=== PATIENT | male | born 1970 | race Hispanic/Latino ===

== ENCOUNTER 2019-09-19 10:29 | Emergency (ER) | payer OTHER ==
--- NOTE | 2019-09-19 11:08 | RAD ---
EXAM: Chest 2 views: HISTORY: Cough since September 04 and low-grade fever COMPARISON: 2-17 FINDINGS: There is a normal-sized cardiomediastinal silhouette. There are subtle peripheral areas of airspace o pacity in the left lung. No right-sided infiltrates are seen. The bones are unremarkable. IMPRESSION: Possible peripheral infiltrates in the left lung.
--- NOTE | 2019-09-24 12:30 | EKG ---
Test Reason : CHEST PAIN Blood Pressure : / mmHG Vent. Rate : 081 BPM Atrial Rate : 081 BPM P-R Int : 162 ms QRS Dur : 086 ms QT Int : 372 ms P-R-T Axes : 025 -01 -01 degrees QTc Int : 432 ms Sinus rhythm with Premature atrial complexes Moderate voltage criteria for LVH, may be normal variant Borderline ECG Confirmed by JUAN DAIVD CHAVIRA DO ([id number]), video news editor GRZEGORZ STAFFORD ([id number]) on 09/24/2019 12:29:31 PM Referred By: Confirmed By:JUAN DAVID CHAVIRA DO
== END 2019-09-19 12:40 | disposition home or self-care (01) ==
LOC: ERS 10:29
DX: J12.9 Viral pneumonia, unspecified (principal); G47.30 Sleep apnea, unspecified; I10 Essential (primary) hypertension; M10.9 Gout, unspecified; Z20.828 Contact with and (suspected) exposure to other viral communicable diseases
CPT/HCPCS: 71046; 87635; 93005; U0003

== ENCOUNTER 2020-02-27 19:20 | Emergency (ER) | payer SELFPAY ==
[2020-02-27 20:09] LABS: #Eosinphils 0.1 thou/uL (0.0-0.7); #Lymphocytes 2.2 thou/uL (1.20-3.40); #Monocytes 0.6 thou/uL (0.11-0.59); #Neutrophils 5.1 thou/uL (1.40-6.50); %Basophils 0.3 % (0.0-1.0); %Eosinophils 1.7 % (0.0-10.0); %Lymphocytes 27.4 % (21.0-51.0); %Monocytes 7.7 % (0.0-10.0); %Neutrophils 62.9 % (42.0-75.0); Hemoglobin 13.2 g/dL (14.0-18.0); Mean Corpuscular HGB CONC 35.1 g/dL (32.0-36.0); Mean Corpuscular Hemoglobin 30.6 pg (27.0-31.0); Mean Platelet Volume 7.8 fL (7.4-10.4); Platelet Count 223 thou/uL (130-400); Red Blood Cell (RBC) Count 4.32 mill/uL (4.70-6.10); White Blood Cell (WBC) Count 8.1 thou/uL (4.8-10.8)
[2020-02-27 20:28] LABS: ALT (SGPT) 27 U/L (8-55); AST (SGOT) 19 U/L (5-34); Albumin 4.1 g/dL (3.5-5.0); Alkaline Phosphatase 87 U/L (40-110); Anion Gap 14 mmol/L (10-20); BUN (Urea Nitrogen) 15 mg/dL (8.9-20.6); Bilirubin, Total 0.8 mg/dL (0.2-1.2); Calc. Creatinine Clearance 0 mL/min (70-130); Calcium 9.1 mg/dL (7.8-10.44); Carbon Dioxide 27 mmol/L (22-29); Chloride 102 mmol/L (98-107); Estimated GFR-MDRD 90; Glucose 99 mg/dL (70-105); Lipase 11 U/L (8-78); Protein, Total 7.1 g/dL (6.0-8.3); Sodium 139 mmol/L (136-145)
[2020-02-27] MEDS ORDERED: Morphine 4 MG/ML VIAL ONE (21:05)
[2020-02-27] MEDS ORDERED: Ondansetron PF 4 MG/2 ML Vial ONE (21:05)
[2020-02-27 21:24] LABS: Bacteria/HPF None Seen HPF (None Seen); Bilirubin Negative (Negative); Blood, Urine Trace (Negative); Clarity Clear (Clear); Glucose, Urine (Dipstick) Normal (Negative); Ketone, Urine Negative (Negative); Leukocyte Negative Leu/uL (Negative); Nitrite Negative (Negative); Protein, Urine (Dipstick) 30 mg/dL (Neg-Trace); RBC/HPF None Seen HPF (0-3); Specific Gravity, Urine 1.019 (1.002-1.036); Squamous Epithelial None Seen HPF (0-3); Urobilinogen Normal mg/dL (Less than 2); WBC/HPF 0-3 HPF (0-3)
== END 2020-02-27 22:21 | disposition home or self-care (01) ==
LOC: ERS 19:20
DX: K29.70 Gastritis, unspecified, without bleeding (principal); G47.30 Sleep apnea, unspecified; I10 Essential (primary) hypertension; M10.9 Gout, unspecified
CPT/HCPCS: 36415; 80053; 81003; 81015; 83690; 85025; 93005; J2270; J2405

== ENCOUNTER 2020-03-27 23:39 | Emergency (ER) | payer SELFPAY ==
[2020-03-28] MEDS ORDERED: Ketorolac Tromethamine 30 MG/ML VIAL ONE (02:02)
--- NOTE | 2020-03-28 10:03 | RAD ---
PA VIEW OF CHEST WITH 3 VIEWS OF RIGHT CHEST WALL: Date: 03/28/2020 INDICATION: Right posterior rib pain. FINDINGS: Heart size is accentuated by exam technique. No air space opacity, pleural effusion, or pneumothorax evident. No displaced right-sided rib fracture is evident. IMPRESSION: No displaced right-sided rib fracture. POS: BH
== END 2020-03-28 03:00 | disposition home or self-care (01) ==
LOC: ERS 23:39
DX: S29.012A Strain of muscle and tendon of back wall of thorax, initial encounter (principal); I10 Essential (primary) hypertension; G47.30 Sleep apnea, unspecified; M10.9 Gout, unspecified
CPT/HCPCS: 96372; J1885

== ENCOUNTER 2020-06-08 18:49 | Inpatient (IN) | payer OTHER, SELFPAY ==
[2020-06-08] MEDS ORDERED: Diltiazem 125 MG/25 ML ONE (19:09)
[2020-06-08 19:30] LABS: #Basophils 0.1 thou/uL (0.0-0.2); #Eosinphils 0.1 thou/uL (0.0-0.7); #Lymphocytes 2.4 thou/uL (1.20-3.40); #Monocytes 0.8 thou/uL (0.11-0.59); #Neutrophils 7.2 thou/uL (1.40-6.50); %Basophils 0.7 % (0.0-1.0); %Eosinophils 0.6 % (0.0-10.0); %Lymphocytes 22.5 % (21.0-51.0); %Monocytes 7.5 % (0.0-10.0); %Neutrophils 68.8 % (42.0-75.0); Hemoglobin 12.5 g/dL (14.0-18.0); Mean Corpuscular HGB CONC 34.1 g/dL (32.0-36.0); Mean Corpuscular Hemoglobin 30.7 pg (27.0-31.0); Mean Corpuscular Volume 89.8 fL (78.0-98.0); Mean Platelet Volume 7.1 fL (7.4-10.4); Platelet Count 351 thou/uL (130-400); Red Blood Cell (RBC) Count 4.08 mill/uL (4.70-6.10); White Blood Cell (WBC) Count 10.4 thou/uL (4.8-10.8)
[2020-06-08] MEDS ORDERED: Enoxaparin Sodium 100 MG/ML SYRINGE ONE (20:12)
[2020-06-08] MEDS ORDERED: Enoxaparin Sodium 30 MG/0.3 ML SYRINGE ONE (20:12)
[2020-06-08 20:16] LABS: ALT (SGPT) 34 U/L (8-55); AST (SGOT) 21 U/L (5-34); Albumin 3.8 g/dL (3.5-5.0); Alkaline Phosphatase 91 U/L (40-110); Anion Gap 13 mmol/L (10-20); BUN (Urea Nitrogen) 15 mg/dL (8.9-20.6); Bilirubin, Total 0.8 mg/dL (0.2-1.2); Calc. Creatinine Clearance 0 mL/min (70-130); Calcium 8.6 mg/dL (7.8-10.44); Carbon Dioxide 25 mmol/L (22-29); Chloride 104 mmol/L (98-107); Globulin 2.9 g/dL (2.4-3.5); Glucose 130 mg/dL (70-105); Potassium 3.8 mmol/L (3.5-5.1); Protein, Total 6.7 g/dL (6.0-8.3); Sodium 138 mmol/L (136-145)
[2020-06-08 20:35] LABS: Amphetamine Not Detected (NotDetected); Barbiturates Screen Not Detected (NotDetected); Benzodiazepine Screen Not Detected (NotDetected); Cocaine Metabolite Screen Not Detected (NotDetected); Medtox Control Line Valid? VALID (VALID); Medtox Reader # READER 4; Methadone Not Detected (NotDetected); Methamphetamine Not Detected (NotDetected); Opiate Screen Not Detected (NotDetected); Oxycodone Screen Not Detected (NotDetected); Phencyclidine (PCP) Not Detected (NotDetected); THC/Cannabinoid Screen Not Detected (NotDetected); Tricyclic Screen Not Detected (NotDetected)
[2020-06-08 22:21] LABS: Troponin I 0.014 ng/mL (< 0.028)
[2020-06-08 22:38] VITALS: BMI 35.3
[2020-06-09 01:26] LABS: Troponin I 0.014 ng/mL (< 0.028)
[2020-06-09] MEDS ORDERED: Ibuprofen 800 MG TAB PO SCH (02:00)
[2020-06-09] MEDS ORDERED: Sodium Chloride 0.65% Nasal 44 ML BOT EA NARE PRN (02:11)
[2020-06-09] MEDS ORDERED: Diltiazem HCl 125 MG, Admixture Fee 1 EACH in Sodium Chloride 0.9% 100 ML IVPB SCH (03:00)
[2020-06-09 04:48] LABS: #Eosinphils 0.1 thou/uL (0.0-0.7); #Lymphocytes 1.8 thou/uL (1.20-3.40); #Monocytes 0.8 thou/uL (0.11-0.59); #Neutrophils 7.5 thou/uL (1.40-6.50); %Basophils 0.3 % (0.0-1.0); %Eosinophils 0.5 % (0.0-10.0); %Lymphocytes 17.9 % (21.0-51.0); %Monocytes 7.6 % (0.0-10.0); %Neutrophils 73.7 % (42.0-75.0); Hemoglobin 11.5 g/dL (14.0-18.0); Mean Corpuscular HGB CONC 33.2 g/dL (32.0-36.0); Mean Corpuscular Hemoglobin 30.2 pg (27.0-31.0); Mean Corpuscular Volume 90.8 fL (78.0-98.0); Mean Platelet Volume 7.3 fL (7.4-10.4); Platelet Count 337 thou/uL (130-400); RBC Distribution Width 12.2 % (11.5-14.5); Red Blood Cell (RBC) Count 3.81 mill/uL (4.70-6.10); White Blood Cell (WBC) Count 10.2 thou/uL (4.8-10.8)
[2020-06-09 05:15] LABS: Anion Gap 15 mmol/L (10-20); BUN (Urea Nitrogen) 15 mg/dL (8.9-20.6); Calc. Creatinine Clearance 158 mL/min (70-130); Calcium 8.5 mg/dL (7.8-10.44); Carbon Dioxide 23 mmol/L (22-29); Chloride 104 mmol/L (98-107); Glucose 117 mg/dL (70-105); Potassium 3.6 mmol/L (3.5-5.1); Sodium 138 mmol/L (136-145)
[2020-06-09 05:58] LABS: SARS-CoV-2 PCR by NAA Not Detected (NotDetected)
[2020-06-09] MEDS ORDERED: Enoxaparin Sodium 40 MG/0.4 ML SYRINGE SC SCH (09:00)
[2020-06-09] MEDS ORDERED: Acetaminophen 325 MG TAB PO PRN (13:58)
[2020-06-09] MEDS: Enoxaparin Sodium 100 MG/ML SYRINGE SC SCH (20:53)
[2020-06-09] MEDS: Carvedilol 6.25 MG TAB PO SCH (20:53)
[2020-06-10] MEDS: Ibuprofen 800 MG TAB PO PRN ×2 (01:27→20:18)
[2020-06-10] MEDS: Guaifenesin DM 100-10/5 ML UDCUP PO PRN ×2 (01:29→18:05)
[2020-06-10 04:35] LABS: #Lymphocytes 2.6 thou/uL (1.20-3.40); #Neutrophils 8.5 thou/uL (1.40-6.50); %Basophils 0.2 % (0.0-1.0); %Eosinophils 0.4 % (0.0-10.0); %Lymphocytes 21.1 % (21.0-51.0); %Monocytes 7.8 % (0.0-10.0); %Neutrophils 70.5 % (42.0-75.0); Mean Corpuscular Hemoglobin 30.6 pg (27.0-31.0); Mean Corpuscular Volume 89.9 fL (78.0-98.0); Mean Platelet Volume 7.2 fL (7.4-10.4); Platelet Count 350 thou/uL (130-400); RBC Distribution Width 12.1 % (11.5-14.5); Red Blood Cell (RBC) Count 3.93 mill/uL (4.70-6.10); White Blood Cell (WBC) Count 12.1 thou/uL (4.8-10.8)
[2020-06-10 04:55] LABS: Anion Gap 13 mmol/L (10-20); BUN (Urea Nitrogen) 13 mg/dL (8.9-20.6); Calc. Creatinine Clearance 162 mL/min (70-130); Calcium 8.3 mg/dL (7.8-10.44); Carbon Dioxide 24 mmol/L (22-29); Chloride 105 mmol/L (98-107); Glucose 129 mg/dL (70-105); Potassium 3.4 mmol/L (3.5-5.1); Sodium 139 mmol/L (136-145)
[2020-06-10] MEDS ORDERED: Communication Order-Pharmacy FS SCH (09:30)
[2020-06-10] MEDS: Carvedilol 6.25 MG TAB PO SCH ×2 (09:57→20:15)
[2020-06-10] MEDS: Enoxaparin Sodium 100 MG/ML SYRINGE SC SCH ×2 (10:00→20:15)
[2020-06-10] MEDS ORDERED: Benzonatate 100 MG CAP PO SCH (10:00)
[2020-06-10] MEDS: Benzonatate 100 MG CAP PO SCH ×2 (16:24→20:15)
[2020-06-11 04:45] LABS: #Basophils 0.1 thou/uL (0.0-0.2); #Eosinphils 0.1 thou/uL (0.0-0.7); #Lymphocytes 4.1 thou/uL (1.20-3.40); #Monocytes 0.9 thou/uL (0.11-0.59); #Neutrophils 5.7 thou/uL (1.40-6.50); %Basophils 0.7 % (0.0-1.0); %Eosinophils 1.1 % (0.0-10.0); %Monocytes 7.9 % (0.0-10.0); %Neutrophils 52.2 % (42.0-75.0); Hemoglobin 13.6 g/dL (14.0-18.0); Mean Corpuscular HGB CONC 34.1 g/dL (32.0-36.0); Mean Corpuscular Hemoglobin 30.6 pg (27.0-31.0); Mean Corpuscular Volume 89.8 fL (78.0-98.0); Mean Platelet Volume 7.4 fL (7.4-10.4); Platelet Count 394 thou/uL (130-400); RBC Distribution Width 12.1 % (11.5-14.5); Red Blood Cell (RBC) Count 4.44 mill/uL (4.70-6.10); White Blood Cell (WBC) Count 10.9 thou/uL (4.8-10.8)
[2020-06-11 05:10] LABS: Anion Gap 14 mmol/L (10-20); BUN (Urea Nitrogen) 13 mg/dL (8.9-20.6); Calc. Creatinine Clearance 154 mL/min (70-130); Calcium 8.6 mg/dL (7.8-10.44); Carbon Dioxide 25 mmol/L (22-29); Chloride 104 mmol/L (98-107); Glucose 105 mg/dL (70-105); Potassium 3.7 mmol/L (3.5-5.1); Sodium 139 mmol/L (136-145)
[2020-06-11] MEDS: Benzonatate 100 MG CAP PO SCH ×3 (05:17→20:27)
[2020-06-11] MEDS: Carvedilol 6.25 MG TAB PO SCH (05:17)
[2020-06-11] MEDS ORDERED: Lidocaine 1% (PF) 30 ML VIAL ONE (09:36)
[2020-06-11] MEDS ORDERED: Midazolam HCl 2 mg/2 ml Vial ONE (10:06)
[2020-06-11] MEDS ORDERED: Iopamidol 370 76% 100 ML VIAL ONE (11:45)
[2020-06-11] MEDS: Amiodarone 200 MG TAB PO SCH ×2 (15:32→20:27)
[2020-06-11] MEDS ORDERED: Carvedilol 6.25 MG TAB PO SCH (20:00)
[2020-06-11] MEDS: Apixaban 5 MG TAB PO SCH (20:28)
[2020-06-11] MEDS: Sacubitril 49 MG/Valsartan 51 MG TABLET PO SCH (20:28)
[2020-06-12 04:46] LABS: #Basophils 0.1 thou/uL (0.0-0.2); #Eosinphils 0.1 thou/uL (0.0-0.7); #Lymphocytes 2.9 thou/uL (1.20-3.40); #Monocytes 0.8 thou/uL (0.11-0.59); %Basophils 0.6 % (0.0-1.0); %Eosinophils 0.9 % (0.0-10.0); %Lymphocytes 29.4 % (21.0-51.0); %Monocytes 8.3 % (0.0-10.0); %Neutrophils 60.7 % (42.0-75.0); Hemoglobin 13.2 g/dL (14.0-18.0); Mean Corpuscular HGB CONC 33.9 g/dL (32.0-36.0); Mean Corpuscular Hemoglobin 30.5 pg (27.0-31.0); Mean Corpuscular Volume 90.1 fL (78.0-98.0); Platelet Count 397 thou/uL (130-400); Red Blood Cell (RBC) Count 4.31 mill/uL (4.70-6.10)
[2020-06-12 05:13] LABS: Anion Gap 12 mmol/L (10-20); BUN (Urea Nitrogen) 14 mg/dL (8.9-20.6); Calc. Creatinine Clearance 160 mL/min (70-130); Calcium 8.3 mg/dL (7.8-10.44); Carbon Dioxide 24 mmol/L (22-29); Chloride 107 mmol/L (98-107); Glucose 117 mg/dL (70-105); Potassium 3.7 mmol/L (3.5-5.1); Sodium 139 mmol/L (136-145)
[2020-06-12] MEDS: Amiodarone 200 MG TAB PO SCH ×3 (08:41→20:44)
[2020-06-12] MEDS: Carvedilol 6.25 MG TAB PO SCH ×2 (08:41→20:44)
[2020-06-12] MEDS: Apixaban 5 MG TAB PO SCH ×2 (08:41→20:44)
[2020-06-12] MEDS: Benzonatate 100 MG CAP PO SCH ×3 (08:41→20:44)
[2020-06-12] MEDS: Sacubitril 49 MG/Valsartan 51 MG TABLET PO SCH ×2 (08:41→20:44)
[2020-06-12] MEDS ORDERED: PROPOFOL 200 MG/20 ML VIAL ONE (09:26)
[2020-06-12] MEDS ORDERED: PROPOFOL 40 ML ONE (12:16)
[2020-06-13] MEDS: Amiodarone 200 MG TAB PO SCH ×4 (09:04→21:26)
[2020-06-13] MEDS: Sacubitril 49 MG/Valsartan 51 MG TABLET PO SCH ×2 (09:04→21:26)
[2020-06-13] MEDS: Benzonatate 100 MG CAP PO SCH ×3 (09:05→21:26)
[2020-06-13] MEDS: Apixaban 5 MG TAB PO SCH ×2 (09:05→21:26)
[2020-06-13] MEDS: Carvedilol 6.25 MG TAB PO SCH ×2 (09:05→21:26)
[2020-06-13] MEDS: Ibuprofen 800 MG TAB PO PRN (09:07)
[2020-06-14] MEDS: Ibuprofen 800 MG TAB PO PRN (04:26)
[2020-06-14 08:31] LABS: Hemoglobin 13.1 g/dL (14.0-18.0); Platelet Count 424 thou/uL (130-400)
[2020-06-14] MEDS: Apixaban 5 MG TAB PO SCH (09:01)
[2020-06-14] MEDS: Benzonatate 100 MG CAP PO SCH (09:01)
[2020-06-14] MEDS: Sacubitril 49 MG/Valsartan 51 MG TABLET PO SCH (09:01)
[2020-06-14] MEDS: Amiodarone 200 MG TAB PO SCH (09:02)
[2020-06-14] MEDS: Carvedilol 6.25 MG TAB PO SCH (09:02)
[2020-06-14 09:13] LABS: Calc. Creatinine Clearance 154 mL/min (70-130)
[2020-06-14 10:15] VITALS: BP 133/82; TEMP 97.7
== END 2020-06-14 11:50 | disposition home or self-care (01) | DRG 287 ==
LOC: ERS 18:49 → 2NO 20:32 → OBSVTOIN 06-09 13:44
PROVIDERS: ADMIT Student in an Organized Health Care Education/Training Program; ATTEND Internal Medicine
PROC: 4A023N7 Measurement of Cardiac Sampling and Pressure, Left Heart, Percutaneous Approach (ICD-10-PCS; principal; 2020-06-11)
PROC: B2111ZZ Fluoroscopy of Multiple Coronary Arteries using Low Osmolar Contrast (ICD-10-PCS; 2020-06-11)
PROC: B2151ZZ Fluoroscopy of Left Heart using Low Osmolar Contrast (ICD-10-PCS; 2020-06-11)
DX: I48.0 Paroxysmal atrial fibrillation (principal); Z20.822 Contact with and (suspected) exposure to COVID-19; M10.9 Gout, unspecified; I42.8 Other cardiomyopathies; E87.6 Hypokalemia; I11.0 Hypertensive heart disease with heart failure; F10.10 Alcohol abuse, uncomplicated; E66.9 Obesity, unspecified; I50.9 Heart failure, unspecified; Z86.16 Personal history of COVID-19; Z68.33 Body mass index [BMI] 33.0-33.9, adult; Z79.01 Long term (current) use of anticoagulants
CPT/HCPCS: 36415; 71045; 76942; 80048; 80053; 80306; 82565; 83880; 84443; 84484; 85014; 85018; 85025; 85049; 87635; 92960; 93005; 93306; 93312; 93458; 96365; 96366; 96372; 99152; G0378; J1650; J2001; J2250; J2704; Q9967; U0003; U0005

== ENCOUNTER 2020-06-27 03:03 | Emergency (ER) | payer OTHER, SELFPAY ==
[2020-06-27 03:46] LABS: #Basophils 0.1 thou/uL (0.0-0.2); #Eosinphils 0.1 thou/uL (0.0-0.7); #Monocytes 0.5 thou/uL (0.11-0.59); #Neutrophils 4.4 thou/uL (1.40-6.50); %Basophils 1.2 % (0.0-1.0); %Eosinophils 1.2 % (0.0-10.0); %Lymphocytes 37.3 % (21.0-51.0); %Neutrophils 54.3 % (42.0-75.0); Hemoglobin 13.4 g/dL (14.0-18.0); Mean Corpuscular HGB CONC 33.2 g/dL (32.0-36.0); Mean Corpuscular Hemoglobin 29.5 pg (27.0-31.0); Mean Corpuscular Volume 88.9 fL (78.0-98.0); Platelet Count 299 thou/uL (130-400); Red Blood Cell (RBC) Count 4.53 mill/uL (4.70-6.10); White Blood Cell (WBC) Count 8.1 thou/uL (4.8-10.8)
[2020-06-27 04:08] LABS: ALT (SGPT) 11 U/L (8-55); AST (SGOT) 8 U/L (5-34); Albumin 3.5 g/dL (3.5-5.0); Alkaline Phosphatase 75 U/L (40-110); Anion Gap 14 mmol/L (10-20); BUN (Urea Nitrogen) 12 mg/dL (8.9-20.6); Bilirubin, Total 0.5 mg/dL (0.2-1.2); Calc. Creatinine Clearance 0 mL/min (70-130); Calcium 8.2 mg/dL (7.8-10.44); Carbon Dioxide 22 mmol/L (22-29); Chloride 105 mmol/L (98-107); Globulin 2.8 g/dL (2.4-3.5); Glucose 114 mg/dL (70-105); Lipase 17 U/L (8-78); Potassium 3.6 mmol/L (3.5-5.1); Protein, Total 6.3 g/dL (6.0-8.3); Sodium 137 mmol/L (136-145)
[2020-06-27 05:09] LABS: Digoxin Less than 0.15 ng/mL (0.8-2.0)
[2020-06-27] MEDS ORDERED: Acetaminophen 500 MG TAB ONE (05:11)
[2020-06-27] MEDS ORDERED: Ketorolac Tromethamine 30 MG/ML VIAL ONE (05:11)
== END 2020-06-27 05:20 | disposition home or self-care (01) ==
LOC: ERS 03:03
DX: I48.92 Unspecified atrial flutter (principal); R07.89 Other chest pain; G47.30 Sleep apnea, unspecified; I10 Essential (primary) hypertension; M10.9 Gout, unspecified; Z79.899 Other long term (current) drug therapy
CPT/HCPCS: 36415; 71045; 80053; 80162; 83690; 84484; 85025; 93005; 96374; J1885

== ENCOUNTER 2020-07-05 09:06 | Outpatient (CLI) | payer OTHER, SELFPAY ==
[2020-07-05 09:48] LABS: #Eosinphils 0.1 10x3/uL (0.0-0.5); #Monocytes 0.6 10x3/uL (0.0-1.1); #Neutrophils 4.5 10x3/uL (1.5-8.4); %Basophils 0.4 % (0.0-2.0); %Lymphocytes 27.5 % (18.0-47.0); %Monocytes 8.8 % (0.0-10.0); %Neutrophils 62.2 % (40.0-75.0); Hemoglobin 13.2 g/dL (13.5-17.5); Mean Corpuscular HGB CONC 31.8 g/dL (32.0-36.0); Mean Corpuscular Hemoglobin 28.6 pg (27.0-33.0); Mean Platelet Volume 10.9 fl (7.4-10.4); Platelet Count 261 10x3/uL (150-450); Red Blood Cell (RBC) Count 4.61 10x6/uL (4.32-5.72); White Blood Cell (WBC) Count 7.2 10x3/uL (3.5-10.5)
[2020-07-05 10:03] LABS: Anion Gap 12 mmol/L (10-20); BUN (Urea Nitrogen) 16 mg/dL (8.9-20.6); Calc. Creatinine Clearance 0 mL/min (70-130); Calcium 8.8 mg/dL (7.8-10.44); Carbon Dioxide 28 mmol/L (22-29); Chloride 104 mmol/L (98-107); Glucose 116 mg/dL (70-105); Potassium 4.5 mmol/L (3.5-5.1); Sodium 139 mmol/L (136-145)
[2020-07-05 10:34] LABS: INR-International Normal Ratio 1.1; PTT 32.5 sec (22.0-33.0); Prothrombin Time 11.9 sec (9.5-12.1)
[2020-07-05 17:59] LABS: SARS-CoV-2 PCR by NAA Not Detected (NotDetected)
== END 2020-07-05 09:07 | disposition home or self-care (01) ==
LOC: LABBT 09:06
PROVIDERS: ATTEND Internal Medicine Cardiovascular Disease
DX: Z01.812 Encounter for preprocedural laboratory examination (principal); I48.3 Typical atrial flutter; Z20.822 Contact with and (suspected) exposure to COVID-19
CPT/HCPCS: 80048; 85025; 85610; 85730; 87635; U0003; U0005

== ENCOUNTER 2020-07-10 12:40 | Day surgery (SDC) | payer OTHER, SELFPAY ==
[2020-07-06 12:19] VITALS: BMI 32.6
[2020-07-10] MEDS ORDERED: PROPOFOL 200 MG/20 ML VIAL ONE (13:32)
== END 2020-07-10 15:01 | disposition home or self-care (01) ==
LOC: CCL 12:40
PROVIDERS: ATTEND Internal Medicine Cardiovascular Disease
PROC: B24BZZ4 Ultrasonography of Heart with Aorta, Transesophageal (ICD-10-PCS; principal; 2020-07-10)
PROC: 5A2204Z Restoration of Cardiac Rhythm, Single (ICD-10-PCS; principal; 2020-07-10)
DX: I48.3 Typical atrial flutter (principal); I42.9 Cardiomyopathy, unspecified; I08.0 Rheumatic disorders of both mitral and aortic valves; I70.0 Atherosclerosis of aorta; I10 Essential (primary) hypertension; G47.30 Sleep apnea, unspecified; M10.9 Gout, unspecified; F10.10 Alcohol abuse, uncomplicated; E66.9 Obesity, unspecified; Z68.32 Body mass index [BMI] 32.0-32.9, adult; Z79.01 Long term (current) use of anticoagulants; Z79.899 Other long term (current) drug therapy
CPT/HCPCS: 92960; 93005; 93010; 93312; J2704

== ENCOUNTER 2020-10-09 14:45 | Outpatient (CLI) | payer OTHER | END 2020-10-09 14:46 | disposition home or self-care (01) | LOC: BICRAD 14:45 | PROVIDERS: ATTEND Internal Medicine | DX: Z02.71 Encounter for disability determination (principal) | CPT/HCPCS: 71046 ==

== ENCOUNTER 2021-08-27 12:19 | Emergency (ER) | payer OTHER | END 2021-08-27 16:15 | disposition left against medical advice (07) | LOC: ERS 12:19 | DX: Z53.21 Procedure and treatment not carried out due to patient leaving prior to being seen by health care provider (principal) ==

== ENCOUNTER 2023-02-11 07:20 | Day surgery (SDC) | payer OTHER ==
[2023-02-09 09:45] VITALS: BMI 33.4
[2023-02-09 10:51] LABS: Hematocrit 41.9 % (38.8-50.0); Hemoglobin 14.1 g/dL (13.5-17.5); Mean Corpuscular HGB CONC 33.7 g/dL (32.0-36.0); Mean Corpuscular Hemoglobin 30.1 pg (27.0-33.0); Mean Corpuscular Volume 89.3 fl (81.2-95.1); Platelet Count 255 10x3/uL (150-450); RBC Distribution Width 13.1 % (11.5-14.5); Red Blood Cell (RBC) Count 4.69 10x6/uL (4.32-5.72); White Blood Cell (WBC) Count 6.1 10x3/uL (3.5-10.5)
[2023-02-09 11:33] LABS: PTT 29.6 sec (22.0-33.0)
[2023-02-09 11:39] LABS: Anion Gap 15 mmol/L (10-20); BUN (Urea Nitrogen) 17 mg/dL (8.4-25.7); Calc. Creatinine Clearance 126 mL/min (70-130); Calcium 9.1 mg/dL (7.8-10.44); Carbon Dioxide 23 mmol/L (22-29); Chloride 107 mmol/L (98-107); Estimated GFR 94; Glucose 107 mg/dL (70-105); Potassium 4.3 mmol/L (3.5-5.1); Sodium 141 mmol/L (136-145)
[2023-02-11] MEDS ORDERED: Heparin 10,000 UNITS/ 10 ML VIAL ONE (09:09)
[2023-02-11] MEDS ORDERED: Heparin 25,000 units/D5W 500 ML ONE (09:09)
[2023-02-11] MEDS ORDERED: Protamine Sulfate 50 MG/5 ML VIAL ONE (09:09)
[2023-02-11] MEDS ORDERED: Oxymetazoline HCl 0.05% (30 ML BOT) ONE (10:17)
[2023-02-11] MEDS ORDERED: fentaNYL 50 mcg/mL 1 mL Vial ONE ×3 (10:24→14:11)
[2023-02-11] MEDS ORDERED: NEOSTIGMINE 3 MG/3 ML SYR 3 MG/3 ML SYRINGE ONE (10:37)
[2023-02-11] MEDS ORDERED: Succinylcholine 200 MG/10 ml SYRINGE FS ONE (10:37)
[2023-02-11] MEDS ORDERED: Dexamethasone 20 MG/5 ML VIAL ONE (10:37)
[2023-02-11] MEDS ORDERED: Glycopyrrolate 0.2 MG/ML 5 ML SYRINGE ONE (10:37)
[2023-02-11] MEDS ORDERED: PHENYLEPHRINE-NS 100 MCG/ML 10 ML SYRINGE ONE (10:37)
[2023-02-11] MEDS ORDERED: PROPOFOL 200 MG/20 ML VIAL ONE (10:37)
[2023-02-11] MEDS ORDERED: Lidocaine 1% PF 5 ML VIAL ONE (10:37)
[2023-02-11] MEDS ORDERED: Rocuronium Bromide 10 MG/ML (10ML VIAL) ONE (10:37)
[2023-02-11] MEDS ORDERED: ePHEDrine Sulfate 50 MG/10 ML VIAL ONE (10:37)
[2023-02-11] MEDS ORDERED: Ondansetron PF 4 MG/2 ML Vial ONE ×2 (10:37→11:49)
[2023-02-11] MEDS ORDERED: Isoproterenol 0.2 MG/1 ML AMP ONE (12:43)
== END 2023-02-11 17:30 | disposition home or self-care (01) ==
LOC: SDC 07:20
PROVIDERS: ATTEND Internal Medicine Cardiovascular Disease
PROC: 4A0274Z Measurement of Cardiac Electrical Activity, Via Natural or Artificial Opening (ICD-10-PCS; principal; 2023-02-11)
PROC: 02573ZK Destruction of Left Atrial Appendage, Percutaneous Approach (ICD-10-PCS; principal; 2023-02-11)
DX: I48.19 Other persistent atrial fibrillation (principal); I11.0 Hypertensive heart disease with heart failure; I50.9 Heart failure, unspecified; I25.5 Ischemic cardiomyopathy; E66.9 Obesity, unspecified; Z68.33 Body mass index [BMI] 33.0-33.9, adult; Z90.49 Acquired absence of other specified parts of digestive tract; Z95.818 Presence of other cardiac implants and grafts; Z86.16 Personal history of COVID-19; Z79.01 Long term (current) use of anticoagulants
CPT/HCPCS: 80048; 85027; 85347; 85610; 85730; 93005; 93623; 93656; 93657; C1732; C1759; C1760; C1894; J1100; J1644; J2405; J2704; J2720; J3010

== ENCOUNTER 2023-07-02 15:53 | Outpatient (CLI) | payer OTHER ==
[2023-07-02 16:58] LABS: #Basophils 0.06 10x3/uL (0.0-0.2); #Eosinphils 0.09 10x3/uL (0.0-0.5); #Monocytes 0.49 10x3/uL (0.0-1.1); %Eosinophils 1.6 % (0.0-6.0); %Lymphocytes 39.8 % (18.0-47.0); %Monocytes 8.6 % (0.0-10.0); %Neutrophils 48.8 % (40.0-75.0); Hemoglobin 13.9 g/dL (13.5-17.5); Mean Corpuscular HGB CONC 35.6 g/dL (32.0-36.0); Mean Corpuscular Hemoglobin 31.1 pg (27.0-33.0); Mean Corpuscular Volume 87.2 fl (81.2-95.1); Mean Platelet Volume 10.8 fl (7.4-10.4); Platelet Count 259 10x3/uL (150-450); RBC Distribution Width 12.4 % (11.5-14.5); Red Blood Cell (RBC) Count 4.47 10x6/uL (4.32-5.72); White Blood Cell (WBC) Count 5.7 10x3/uL (3.5-10.5)
[2023-07-02 17:15] LABS: Prothrombin Time 10.9 sec (9.5-12.1)
[2023-07-02 17:17] LABS: Anion Gap 10 mmol/L (10-20); BUN (Urea Nitrogen) 18 mg/dL (8.4-25.7); Calc. Creatinine Clearance 0 mL/min (70-130); Calcium 9.8 mg/dL (7.8-10.44); Carbon Dioxide 32 mmol/L (22-29); Chloride 104 mmol/L (98-107); Estimated GFR 91; Glucose 89 mg/dL (70-105); Potassium 4.5 mmol/L (3.5-5.1); Sodium 141 mmol/L (136-145)
== END 2023-07-02 15:54 | disposition home or self-care (01) ==
LOC: LABBT 15:53
PROVIDERS: ATTEND Orthopaedic Surgery
DX: Z01.818 Encounter for other preprocedural examination (principal); M17.11 Unilateral primary osteoarthritis, right knee
CPT/HCPCS: 80048; 85025; 85610; 87081; 93005; 93010

== ENCOUNTER 2024-03-09 07:14 | Emergency (ER) | payer OTHER ==
[2024-03-09] MEDS ORDERED: Dexamethasone 10 MG/ML VIAL ONE (07:58)
[2024-03-09] MEDS ORDERED: Ketorolac Tromethamine 30 MG (1 mL) VIAL ONE (07:58)
== END 2024-03-09 10:03 | disposition home or self-care (01) ==
LOC: ERS 07:14
DX: J02.8 Acute pharyngitis due to other specified organisms (principal); I48.91 Unspecified atrial fibrillation; I10 Essential (primary) hypertension
CPT/HCPCS: 71045; 87081; 87430; 96372; J1100; J1885